=== PATIENT | female | born 1985 | race Caucasian/White ===

== ENCOUNTER 2016-07-30 13:04 | Inpatient (IN) | payer MEDICARE, MEDICAID ==
[~2016-07-30 13:04] MED LIST: ACETAMINOPHEN325 M2 PO; ACETAMINOPHEN500 MG; ALBUTEROL0.83 MG/ML INH; ALDACTONE25 M1 PO; AMITRIPTYLINE H25 M1 PO; ANASPAZ0.125 M1 PO; ASPIRIN325 MG PO; ATARAX25 MG PO; AUGMENTIN 875-1 EAC2 PO; AUGMENTIN 875-11 TAB PO; AUGMENTIN875 MG PO; BACLOFEN IL; BACLOFEN PUMP; BACLOFEN10 MG PO; BACLOFEN20 M1 PO; BACLOFEN20 MG; BACLOFEN20 MG PO; BACTRIM DS TAB1 EAC2 PO; BACTRIM DS TABL1 TAB PO; BACTRIM DS1 TAB PO; BISACODYL5 MG PO; BUPROPION XL150 MG PO; CARAFATE1 G2 PO; CEFAZOLIN IV; CHLORASEPTIC LO1 LOZ MM; CIPRO750 MG PO; CLARITIN10 M2 PO; CLEOCIN HCL300 M1 PO; CLONAZEPAM1 M2 PO; CLONAZEPAM1 MG PO; COLACE100 M1 PO; CRANBERRY W/ VIT C PO; CULTURELLE1 EAC1 PO; CYMBALTA60 M1 PO; CYMBALTA60 MG; CYMBALTA60 MG PO; DARVOCET-N 1001 EACH PO; DASETTA 1-35-21 EACH PO; DIFLUCAN150 MG PO; DIPHENOXYLATE-A1 TAB PO; DIPHENOXYLATE/A1 TAB PO; DOC-Q-LACE100 M1 PO; DORYX100 M PO; DULCOLAX10 MG/SUPP RC; DUONEB 2.5-0.5 M3 ML IH; EFFEXOR XR150 MG/TAB PO; EFFEXOR XR75 MG PO; EPIPEN 2-P0.3 MG/0.3 IM; FERROUS SU324 ( 65 ) PO; FLONASE16 G1; GABAPENTIN300 MG PO; GABITRIL4 MG; GAS RELIEF125 MG PO; GAS-X125 MG PO; GENTAMICIN BLADIN; GENTAMYCIN TP; GIANVI 3 MG-0.1 EACH PO; H; HIPREX1 GM PO; HYDROCHLOROTHIA25 MG PO; HYDROCODON-ACE1 EA15 PO; HYDROCODON-ACE1 EAC7 PO; HYDROCODONE/APA1 TAB PO; HYOSCYAMINE PO; HYOSCYAMINE0.125 M2 PO; IBUPROFEN600 M1 PO; IMITREX PO; IMITREX50 M2 PO; IMODIUM2 MG PO; IRON1 TA1 PO; K-DUR10 ME1 PO; K-DUR20 ME1 PO; K-TAB ER10 MEQ PO; KLONOPIN1 MG PO; KLOR-CON M1515 ME1 PO; LASIX40 M1 PO; LASIX80 M1 PO; LASIX80 MG PO; LAXATIVE25 M1 PO; LAXATIVE8.6 M1 PO; LYRICA50 MG PO; LYRICA50 MG/CAP PO; MACROBID 100 M100 MG PO; MACROBID100 MG/CA1 PO; MACROBID100 MG/CAP PO; MAGIC DIAPER CREAM; MAGNESIUM PO; MAGNESIUM400 M2 PO; MAGOX 400400 M1 PO; MAXIPIME IV; MAXIPIME2 GM IV; MEDS; MERREM1 GM IV; METHENAMINE PO; METOCLOPRAMIDE10 MG PO; MICRO-K10 MEQ PO; MIRALAX17 G1 PO; MIRALAX17 G2 PO; MIRALAX17 GM PO; MIRALAX255 GM; MUCINEX600 M1 PO; MUCINEX600 MG PO; MULTIVITAMIN W/1 T PO; MULTIVITAMIN W/1 TA; MULTIVITAMIN1 TAB PO; MULTIVITAMINS1 EAC6 PO; MYCAMINE100 MG/VIA IV; MYTAB GAS80 MG PO; NABUMETONE750 MG PO; NORCO 10-325 T1 EACH PO; NORCO 5-325 TA1 EACH PO; NORCO 5/3251 TA1 PO; NORMAL SALINE FL2 ML IV; NORTREL 1-35 T1 EACH PO; NORTREL1 T PO; NYSTATIN1 EA10 MC; NYSTATIN60 ML PO; OMEPRAZOLE20 MG PO; OMEPRAZOLE40 M2 PO; OMEPRAZOLE40 MG PO; OMNICEF300 MG PO; OXYCODON-ACETA1 EAC4 PO; OXYCODONE/APAP PO; PAPAYA ENZYME PO; PERCOCET 5-3251 EACH PO; PERCOCET 5/3251 TAB PO; PHENERGAN W/CO120 ML PO; POTASSIUM CHLO10 MEQ PO; POTASSIUM CHLO20 ME3 PO; PRILOSEC OTC20 M1 PO; PRILOSEC PO; PRILOSEC20 M1 PO; PRILOSEC20 MG; PRILOSEC20 MG PO; PRILOSEC40 MG PO; PROTONIX PO; PYRIDIUM200 MG PO; QUESTRAN POWDE378 GM PO; RANITIDINE HCL150 M3 PO; REGLAN10 MG PO; ROCEPHIN1 G/VIAL IV; ROZEREM8 MG; SAVELLA50 MG PO; SENOKOT-S (SENN1 TA1 PO; SODIUM CHLORI1000 ML; SPIRONOLACTONE PO; SPIRONOLACTONE25 M2 PO; STOOL SOFTENER100 MG PO; SUCRALFATE1 G PO; SUMATRIPTAN SUC25 M1 PO; TIZANADINE HCL4 MG; TIZANIDINE HCL4 MG; TOPAMAX25 MG PO; TOPAMAX50 M1 PO; TOPIRAMATE25 MG PO; TOPROL XL50 MG PO; TOVIAZ4 MG PO; TRAMADOL HCL50 M1 PO; TRAMADOL HCL50 MG PO; TRAZODONE HCL100 M1 PO; TRAZODONE HCL150 M1 PO; TRAZODONE100 MG PO; TRAZODONE50 MG PO; TYLENOL WITH C1 EACH PO; TYLENOL325 MG PO; TYLENOL650 MG PO; ULTRAM50 MG PO; VALIUM5 MG PO; VESICARE10 M1 PO; VESICARE10 MG PO; VESICARE5 MG PO; VIBRAMYCIN100 M1 PO; VITAMIN C1000 M1 PO; XIFAXAN550 M1 PO; ZANAFLEX4 MG PO; ZITHROMAX TRI-500 M1 PO; ZITHROMAX250 M1 PO; ZITHROMAX250 MG PO; ZOFRAN ODT4 MG/UDTAB PO; ZOFRAN ODT8 MG PO; ZOFRAN4 M2 PO; ZOFRAN4 MG SL; ZOFRAN8 MG PO; ZOSYN IV; ZYLOPRIM100 M1 PO; ZYRTEC10 MG PO; ZYRTEC1010 PO; [UNRECOGNIZED DRUG - CODE] PO; [UNRECOGNIZED DRUG - OTHER] PO; antibiotic
[2016-07-30] MEDS ORDERED: LASIX80 M1 PO (13:59)
[2016-07-30] MEDS ORDERED: GLUCOPHAGE1000 M1 PO (14:04)
[2016-07-30] MEDS ORDERED: GLUCOTROL5 M1 PO (14:06)
[2016-07-30 14:28] LABS: BASO % 0.2 % (0-2); EOS % 0.2 % (0-7); HCT-HEMATOCRIT 37.6 % (34.0-49.0); HGB-HEMOGLOBIN 10.8 gm/dl (12.0-15.5); IMMATURE GRANULOCYTES ABSOLUTE 0.07 tho/cmm (0-0.03); IMMATURE GRANULOCYTES PERCENT 0.6 % (0-0.3); LYMPH % 16.9 % (20-45); LYMPH ABSOLUTE COUNT 1.9 tho/cmm (0.8-4.5); MEAN PLATELET VOLUME 8.8 cmc (9.4-12.4); MONO % 3.1 % (0-12); MONOCYTE ABSOLUTE COUNT 0.4 tho/cmm (0.0-1.2); NEUTROPHIL ABSOLUTE COUNT 8.8 tho/cmm (1.6-8.0); NEUTROPHIL-AUTOMATED 8.8 tho/cmm (1.6-8.0); PLATELET COUNT 429 tho/cmm (150-450); RED BLOOD COUNT 5.15 mil/cmm (4.00-5.20); RED CELL DISTRIBUTION WIDTH 18.4 % (12.4-16.4); WHITE BLOOD COUNT 11.2 tho/cmm (4.0-10.0)
[2016-07-30 14:31] LABS: ANION GAP 20 mmol/L (0-20); BLOOD UREA NITROGEN 32 mg/dl (6-24); CALCIUM 9.7 mg/dl (8.5-10.5); CARBON DIOXIDE-VENOUS 20 mmol/L (22-32); CHLORIDE 112 mmol/l (96-110); CREATININE 1.44 mg/dl (0.50-1.10); GLUCOSE 134 mg/dL (70-110); POTASSIUM 4.1 mmol/L (3.7-5.1); SODIUM 148 mmol/L (135-145); eGFR VALUE FOR BLACK 56 mL/Min
[2016-07-30 14:40] LABS: MCHC MEAN CORPUSCULAR HGB CONC 28.7 % (32.0-36.0)
[2016-07-30 14:59] LABS: PROCALCITONIN 0.14 ng/ml (0.05-0.09)
[2016-07-30 15:32] LABS: URINE BILIRUBIN NEGATIVE (NEG); URINE BLOOD LARGE (NEG); URINE GLUCOSE (UA) NEGATIVE (NEG); URINE KETONE MODERATE (NEG); URINE LEUKOCYTE ESTERASE POSITIVE (NEG); URINE NITRITE NEGATIVE (NEG); URINE PROTEIN MODERATE (NEG)
[2016-07-30 15:34] LABS: URINE APPEARANCE CLOUDY; URINE COLOR STRAW
[2016-07-30 15:58] LABS: URINE RBC 100-150 /[HPF] (0-5)
[2016-07-30 15:59] LABS: URINE WBC 0-1 /[HPF] (0-5)
[2016-07-30 17:28] LABS: ABG CO2 ARTERIAL 20 mmol/L (21-27); ARTERIAL BLD GAS O2 SATURATION 97 % (95-98); ARTERIAL BLOOD GAS PCO2 41 mmHg (32-45); ARTERIAL PO2 95 mmHg (70-100); BICARBONATE 19 mmol/L (21-28); BLOOD GAS BASE EXCESS -7 mM/L (-/+3); PH 7.28 Units (7.35-7.45)
[2016-07-31 00:08] LABS: INR 1.1 INR (0.9-1.1); PROTHROMBIN TIME 12.6 SECONDS (9.0-13.6)
[2016-07-31 00:23] LABS: ALB/GLOB RATIO 0.6 (0.8-2.0); ALBUMIN 2.8 g/dl (3.5-5.0); ALKALINE PHOSPHATASE 144 U/L (33-138); ALT/SGPT 26 U/L (12-78); ANION GAP 13 mmol/L (0-20); AST/SGOT 31 U/L (10-40); BILIRUBIN,TOTAL 0.3 mg/dl (0-1.5); BLOOD UREA NITROGEN 19 mg/dl (6-24); CALCIUM 8.2 mg/dl (8.5-10.5); CARBON DIOXIDE-VENOUS 22 mmol/L (22-32); CHLORIDE 114 mmol/l (96-110); CREATININE 0.78 mg/dl (0.50-1.10); GLUCOSE 153 mg/dL (70-110); SODIUM 146 mmol/L (135-145); eGFR VALUE FOR BLACK >90 mL/Min
[2016-07-31 00:24] LABS: POTASSIUM 2.9 mmol/L (3.7-5.1)
[2016-07-31 05:49] LABS: BASO % 0.2 % (0-2); EOS % 0.6 % (0-7); EOSINOPHIL ABSOLUTE COUNT 0.1 tho/cmm (0.0-0.7); HCT-HEMATOCRIT 31.2 % (34.0-49.0); HGB-HEMOGLOBIN 8.8 gm/dl (12.0-15.5); IMMATURE GRANULOCYTES ABSOLUTE 0.04 tho/cmm (0-0.03); IMMATURE GRANULOCYTES PERCENT 0.4 % (0-0.3); LYMPH % 21.1 % (20-45); LYMPH ABSOLUTE COUNT 1.9 tho/cmm (0.8-4.5); MCH (MEAN CORPUSCULAR HGB) 20.4 pg (28.0-32.0); MCV (MEAN CELL VOLUME) 72.4 fl (82.0-96.0); MEAN PLATELET VOLUME 8.7 cmc (9.4-12.4); MONO % 3.9 % (0-12); MONOCYTE ABSOLUTE COUNT 0.4 tho/cmm (0.0-1.2); NEUTROPHIL ABSOLUTE COUNT 6.6 tho/cmm (1.6-8.0); NEUTROPHIL-AUTOMATED 6.6 tho/cmm (1.6-8.0); NEUTROPHILS % 73.8 % (40-80); PLATELET COUNT 285 tho/cmm (150-450); RED BLOOD COUNT 4.31 mil/cmm (4.00-5.20); RED CELL DISTRIBUTION WIDTH 18.3 % (12.4-16.4)
[2016-07-31 06:14] LABS: ALB/GLOB RATIO 0.6 (0.8-2.0); ALBUMIN 2.6 g/dl (3.5-5.0); ALKALINE PHOSPHATASE 140 U/L (33-138); ALT/SGPT 26 U/L (12-78); ANION GAP 14 mmol/L (0-20); AST/SGOT 37 U/L (10-40); BILIRUBIN,TOTAL 0.2 mg/dl (0-1.5); BLOOD UREA NITROGEN 14 mg/dl (6-24); CALCIUM 7.8 mg/dl (8.5-10.5); CARBON DIOXIDE-VENOUS 21 mmol/L (22-32); CHLORIDE 109 mmol/l (96-110); CREATININE 0.59 mg/dl (0.50-1.10); GLUCOSE 86 mg/dL (70-110); POTASSIUM 3.2 mmol/L (3.7-5.1); SODIUM 141 mmol/L (135-145); eGFR VALUE FOR BLACK >90 mL/Min
[2016-07-31 06:15] LABS: MCHC MEAN CORPUSCULAR HGB CONC 28.2 % (32.0-36.0)
[2016-08-01 13:21] LABS: BASO % 0.3 % (0-2); EOS % 0.2 % (0-7); HCT-HEMATOCRIT 33.5 % (34.0-49.0); HGB-HEMOGLOBIN 9.5 gm/dl (12.0-15.5); IMMATURE GRANULOCYTES ABSOLUTE 0.07 tho/cmm (0-0.03); IMMATURE GRANULOCYTES PERCENT 1.2 % (0-0.3); LYMPH % 26.8 % (20-45); LYMPH ABSOLUTE COUNT 1.6 tho/cmm (0.8-4.5); MCH (MEAN CORPUSCULAR HGB) 20.6 pg (28.0-32.0); MCV (MEAN CELL VOLUME) 72.7 fl (82.0-96.0); MEAN PLATELET VOLUME 8.5 cmc (9.4-12.4); MONO % 5.8 % (0-12); MONOCYTE ABSOLUTE COUNT 0.4 tho/cmm (0.0-1.2); NEUTROPHILS % 65.7 % (40-80); PLATELET COUNT 367 tho/cmm (150-450); RED BLOOD COUNT 4.61 mil/cmm (4.00-5.20); RED CELL DISTRIBUTION WIDTH 18.4 % (12.4-16.4)
[2016-08-01 13:26] LABS: MCHC MEAN CORPUSCULAR HGB CONC 28.4 % (32.0-36.0)
[2016-08-01 13:37] LABS: ANION GAP 13 mmol/L (0-20); BLOOD UREA NITROGEN 8 mg/dl (6-24); CALCIUM 8.5 mg/dl (8.5-10.5); CARBON DIOXIDE-VENOUS 21 mmol/L (22-32); CHLORIDE 110 mmol/l (96-110); CREATININE 0.65 mg/dl (0.50-1.10); POTASSIUM 3.8 mmol/L (3.7-5.1); SODIUM 140 mmol/L (135-145); eGFR VALUE FOR BLACK >90 mL/Min
[2016-08-01 13:39] LABS: GLUCOSE 145 mg/dL (70-110)
[2016-08-01 19:18] LABS: BASO % 0.4 % (0-2); EOS % 0.2 % (0-7); HCT-HEMATOCRIT 33.3 % (34.0-49.0); HGB-HEMOGLOBIN 9.6 gm/dl (12.0-15.5); IMMATURE GRANULOCYTES ABSOLUTE 0.07 tho/cmm (0-0.03); IMMATURE GRANULOCYTES PERCENT 1.3 % (0-0.3); LYMPH % 19.4 % (20-45); LYMPH ABSOLUTE COUNT 1.1 tho/cmm (0.8-4.5); MCH (MEAN CORPUSCULAR HGB) 20.9 pg (28.0-32.0); MCHC MEAN CORPUSCULAR HGB CONC 28.8 % (32.0-36.0); MCV (MEAN CELL VOLUME) 72.5 fl (82.0-96.0); MEAN PLATELET VOLUME 8.8 cmc (9.4-12.4); MONO % 3.1 % (0-12); MONOCYTE ABSOLUTE COUNT 0.2 tho/cmm (0.0-1.2); NEUTROPHIL ABSOLUTE COUNT 4.1 tho/cmm (1.6-8.0); NEUTROPHIL-AUTOMATED 4.1 tho/cmm (1.6-8.0); NEUTROPHILS % 75.6 % (40-80); PLATELET COUNT 320 tho/cmm (150-450); RED BLOOD COUNT 4.59 mil/cmm (4.00-5.20); RED CELL DISTRIBUTION WIDTH 18.2 % (12.4-16.4); WHITE BLOOD COUNT 5.4 tho/cmm (4.0-10.0)
[2016-08-01 19:30] LABS: ALB/GLOB RATIO 0.5 (0.8-2.0); ALBUMIN 2.6 g/dl (3.5-5.0); ALKALINE PHOSPHATASE 138 U/L (33-138); ALT/SGPT 25 U/L (12-78); ANION GAP 13 mmol/L (0-20); AST/SGOT 23 U/L (10-40); BILIRUBIN,TOTAL 0.2 mg/dl (0-1.5); BLOOD UREA NITROGEN 8 mg/dl (6-24); CALCIUM 8.4 mg/dl (8.5-10.5); CARBON DIOXIDE-VENOUS 21 mmol/L (22-32); CHLORIDE 111 mmol/l (96-110); CREATININE 0.56 mg/dl (0.50-1.10); GLUCOSE 129 mg/dL (70-110); MAGNESIUM 1.3 mg/dl (1.3-2.6); POTASSIUM 4.1 mmol/L (3.7-5.1); SODIUM 141 mmol/L (135-145); eGFR VALUE FOR BLACK >90 mL/Min
[2016-08-01 20:12] LABS: PROCALCITONIN 0.05 ng/ml (0.05-0.09)
[2016-08-02 03:44] LABS: BASO % 0.2 % (0-2); EOS % 0.5 % (0-7); HCT-HEMATOCRIT 32.9 % (34.0-49.0); HGB-HEMOGLOBIN 9.3 gm/dl (12.0-15.5); IMMATURE GRANULOCYTES ABSOLUTE 0.06 tho/cmm (0-0.03); IMMATURE GRANULOCYTES PERCENT 1.1 % (0-0.3); LYMPH % 26.1 % (20-45); LYMPH ABSOLUTE COUNT 1.5 tho/cmm (0.8-4.5); MCH (MEAN CORPUSCULAR HGB) 20.7 pg (28.0-32.0); MCV (MEAN CELL VOLUME) 73.3 fl (82.0-96.0); MEAN PLATELET VOLUME 8.6 cmc (9.4-12.4); MONO % 8.3 % (0-12); MONOCYTE ABSOLUTE COUNT 0.5 tho/cmm (0.0-1.2); NEUTROPHIL ABSOLUTE COUNT 3.6 tho/cmm (1.6-8.0); NEUTROPHIL-AUTOMATED 3.6 tho/cmm (1.6-8.0); NEUTROPHILS % 63.8 % (40-80); PLATELET COUNT 312 tho/cmm (150-450); RED BLOOD COUNT 4.49 mil/cmm (4.00-5.20); RED CELL DISTRIBUTION WIDTH 18.4 % (12.4-16.4); WHITE BLOOD COUNT 5.7 tho/cmm (4.0-10.0)
[2016-08-02 03:54] LABS: MCHC MEAN CORPUSCULAR HGB CONC 28.3 % (32.0-36.0)
[2016-08-02 04:17] LABS: PROCALCITONIN 0.07 ng/ml (0.05-0.09)
[2016-08-02 08:02] LABS: ANION GAP 12 mmol/L (0-20); BLOOD UREA NITROGEN 8 mg/dl (6-24); CALCIUM 8.2 mg/dl (8.5-10.5); CARBON DIOXIDE-VENOUS 22 mmol/L (22-32); CHLORIDE 111 mmol/l (96-110); CREATININE 0.51 mg/dl (0.50-1.10); GLUCOSE 112 mg/dL (70-110); SODIUM 141 mmol/L (135-145); eGFR VALUE FOR BLACK >90 mL/Min
--- NOTE | 2016-08-02 20:51 | NUR ---
VN ROUNDING-PATIENT IS SLEEPING-WILL CONTINUE WITH CHART REVIEW
[2016-08-03 06:01] LABS: ANION GAP 12 mmol/L (0-20); BLOOD UREA NITROGEN 8 mg/dl (6-24); CALCIUM 7.8 mg/dl (8.5-10.5); CARBON DIOXIDE-VENOUS 19 mmol/L (22-32); CHLORIDE 116 mmol/l (96-110); CREATININE 0.46 mg/dl (0.50-1.10); GLUCOSE 103 mg/dL (70-110); POTASSIUM 3.9 mmol/L (3.7-5.1); SODIUM 143 mmol/L (135-145); eGFR VALUE FOR BLACK >90 mL/Min
--- NOTE | 2016-08-04 01:23 | NUR ---
VN ROUNDING AT 2029-PATIENT WAS SLEEPING
[2016-08-04 07:15] LABS: HGB-HEMOGLOBIN 8.9 gm/dl (12.0-15.5); PLATELET COUNT 338 tho/cmm (150-450)
[2016-08-04 07:23] LABS: ANION GAP 13 mmol/L (0-20); BLOOD UREA NITROGEN 11 mg/dl (6-24); CALCIUM 8.1 mg/dl (8.5-10.5); CARBON DIOXIDE-VENOUS 24 mmol/L (22-32); CHLORIDE 111 mmol/l (96-110); CREATININE 0.46 mg/dl (0.50-1.10); GLUCOSE 88 mg/dL (70-110); POTASSIUM 3.4 mmol/L (3.7-5.1); SODIUM 145 mmol/L (135-145); eGFR VALUE FOR BLACK >90 mL/Min
[2016-08-04] MEDS ORDERED: MACROBID 100 M100 M1 PO (14:57)
--- NOTE | 2016-08-04 16:45 | NUR ---
VIRTUAL CARE NOTE: PT DRESSED RESTING ON BED, MOM AT BEDSIDE READY FOR DISCHARGE INSTRUCTIONS. INFORMATION GIVEN TO PT, DENIED QUESTIONS OR CONCENRS. INFORMED FLOOR NURSE DISCHARGE TEACHING DONE.
== END 2016-08-04 16:55 | disposition home health service (06) | DRG 871 ==
LOC: EDMED 13:04 → EMR2 17:32 → PCUB 22:34 → 5WD 08-02 16:00
PROVIDERS: Emergency Medicine; Hospitalist; Internal Medicine; ADMIT Internal Medicine
DX: A41.81 Sepsis due to Enterococcus (principal); G92 Toxic encephalopathy; N17.9 Acute kidney failure, unspecified; E66.01 Morbid (severe) obesity due to excess calories; N39.0 Urinary tract infection, site not specified; B95.2 Enterococcus as the cause of diseases classified elsewhere; G80.9 Cerebral palsy, unspecified; N31.9 Neuromuscular dysfunction of bladder, unspecified; E11.9 Type 2 diabetes mellitus without complications; K21.9 Gastro-esophageal reflux disease without esophagitis; G47.30 Sleep apnea, unspecified; K58.9 Irritable bowel syndrome, unspecified; E87.6 Hypokalemia; Z68.33 Body mass index [BMI] 33.0-33.9, adult; Z79.84 Long term (current) use of oral hypoglycemic drugs; Z79.899 Other long term (current) drug therapy; Z93.3 Colostomy status
CPT/HCPCS: J0692; J1650; J1815; J2020; J2405; J2997; J3480; J7030